=== PATIENT | female | born 1970 | race Caucasian/White ===

== ENCOUNTER 2016-08-06 11:55 | Emergency (ER) | payer OTHER ==
[~2016-08-06] VITALS: Ht 149.9 cm; Wt 58.0 kg
[2016-08-06 15:04] LABS: CALCIUM 8.9 mg/dL (8.5-10.1); CHLORIDE 105 mEq/L (98-107); INDEX HEMOLYSI 1 (1-3); INDEX ICTERIC 1 (1-4); INDEX LIPEMIC 1 (1-3)
[2016-08-06 15:08] LABS: HEMATOCRIT. 22.9 % (36.0-48.0); HEMOGLOBIN. 7.1 g/dL (12.0-16.0); MEAN CORPUSCULAR HEMOGLOBIN 20.7 pg (28.0-32.0); MEAN CORPUSCULAR HGB CONC 31.1 g/dL (31.0-37.0); MEAN CORPUSCULAR VOLUME 66.6 fL (81.0-99.0); MEAN PLATELET VOLUME 7.9 fl (7.4-10.4); PLATELET 543 x1000/uL (130-400); RED BLOOD CELL COUNT 3.45 mill/uL (4.2-5.4); RED CELL DISTRIBUTION WIDTH 20.8 % (11.6-14.6); WHITE BLOOD COUNT 15.4 x1000/uL (4.5-11.0)
[2016-08-06 15:09] LABS: DIFFERENTIAL COMMENT 1
[2016-08-06 15:10] LABS: ANION GAP 13; CARBON DIOXIDE 25 mEq/L (21-32); UREA NITROGEN BLOOD 16 mg/dL (7-21); eGFR > 60 mL/min (>60)
[2016-08-06 15:26] LABS: HCG SCREEN NEGATIVE
[2016-08-06 15:35] LABS: HYPOCHROMASIA 2+; PLATELET ESTIMATE INCREASED
[2016-08-06 15:37] LABS: ANISOCYTOSIS 1+
[2016-08-06 17:02] VITALS: BP 105/73
== END 2016-08-06 17:25 | disposition home or self-care (01) ==
LOC: ER 12:23
DX: N93.8 Other specified abnormal uterine and vaginal bleeding (principal); D25.9 Leiomyoma of uterus, unspecified; Z88.6 Allergy status to analgesic agent; I10 Essential (primary) hypertension; M19.90 Unspecified osteoarthritis, unspecified site; F17.200 Nicotine dependence, unspecified, uncomplicated; M54.5 Low back pain; G89.29 Other chronic pain
CPT/HCPCS: 36415; 76830; 76856; 80048; 84703; 85025; 99285; Z7610

== ENCOUNTER 2024-12-02 09:45 | Emergency (ER) | payer MEDICAID, MEDICARE, OTHER ==
[~2024-12-02] VITALS: Ht 149.9 cm; Wt 59.0 kg
[2024-12-02 09:46] VITALS: O2SAT 98
[2024-12-02 09:51] VITALS: BP 123/75; PULSE 91; RESP 18; TEMP 36.7; O2SAT 98
[2024-12-02 12:08] LABS: CLARITY URINE CLOUDY (CLEAR); COLOR URINE YELLOW (YELLOW); GLUCOSE URINE NEGATIVE (NEGATIVE); KETONES URINE NEGATIVE (NEGATIVE); LEUKOCYTE ESTERASE URINE 2+ (NEGATIVE); NITRITE URINE POSITIVE (NEGATIVE); OCCULT BLOOD URINE 1+ (NEGATIVE); PH URINE >=9.0 (4.5-8.0); PROTEIN URINE 2+ (NEGATIVE); SPECIFIC GRAVITY URINE 1.012 (1.005-1.030); UROBILINOGEN URINE 0.2 E.U./dL (0.2-1.0)
[2024-12-02 12:28] LABS: TRIPLE PHOSPHATE CRYSTAL URINE 2+ /lpf
[2024-12-02 12:29] LABS: SQUAMOUS EPITHELIAL CELL URINE 1+ /lpf (RARE/1+)
[2024-12-02 12:30] LABS: BACTERIA URINE 4+; WBC URINE 0-2 /hpf (0-2)
[2024-12-02] MEDS ORDERED: CEPH500T MT (12:35)
[2024-12-02] MEDS ORDERED: IBUP-2029 MT (12:35)
[2024-12-02] MEDS: CEFTRIAXONE SODIUM 1G VIAL IM ONE (12:54)
== END 2024-12-02 14:29 | disposition home or self-care (01) ==
LOC: ER 09:45
DX: N39.0 Urinary tract infection, site not specified (principal); I10 Essential (primary) hypertension; Z88.6 Allergy status to analgesic agent; Z98.890 Other specified postprocedural states
CPT/HCPCS: 81003; 96372; 99283; J0696; Z7610

== ENCOUNTER 2024-12-27 09:34 | Emergency (ER) | payer MEDICAID ==
[~2024-12-27] VITALS: Ht 149.9 cm; Wt 58.5 kg
[~2024-12-27 09:34] MED LIST: CEPH500T MT; IBUP-2029 MT
[2024-12-27 09:35] VITALS: O2SAT 98
[2024-12-27] MEDS: FLUORESCEIN SODIUM 1MG/STRIP RIGHTEYE ONE (09:50)
[2024-12-27] MEDS: IBUPROFEN 600MG TABLET PO ONE (09:58)
[2024-12-27] MEDS ORDERED: METH-653 MT (10:00)
[2024-12-27] MEDS ORDERED: OCUFLX RIGHTEYE (10:00)
[2024-12-27 10:11] VITALS: BP 137/90; PULSE 91; RESP 18; TEMP 37.1; O2SAT 100
== END 2024-12-27 10:13 | disposition home or self-care (01) ==
LOC: ER 09:34
DX: M54.6 Pain in thoracic spine (principal); H57.11 Ocular pain, right eye; I10 Essential (primary) hypertension; Q05.9 Spina bifida, unspecified; F10.90 Alcohol use, unspecified, uncomplicated; Z88.6 Allergy status to analgesic agent; Z79.899 Other long term (current) drug therapy; Y90.9 Presence of alcohol in blood, level not specified
CPT/HCPCS: 99283

== ENCOUNTER 2025-01-25 10:54 | Emergency (ER) | payer MEDICAID ==
[~2025-01-25] VITALS: Ht 152.4 cm; Wt 53.0 kg
[~2025-01-25 10:54] MED LIST changes: +IBUP-1455 MT; -IBUP-2029 MT; +METH-653 MT; +OCUFLX RIGHTEYE
[2025-01-25 11:34] VITALS: O2SAT 97
[2025-01-25] MEDS ORDERED: LIDO-53 TP (13:13)
[2025-01-25] MEDS: ACETAMINOPHEN 500MG TABLET PO ONE (13:45)
[2025-01-25] MEDS: LIDOCAINE 5% PATCH TOP SCH (13:45)
[2025-01-25 14:11] VITALS: BP 141/87; PULSE 99; RESP 18; TEMP 36.9; O2SAT 97
== END 2025-01-25 14:12 | disposition home or self-care (01) ==
LOC: ER 10:54
DX: M25.512 Pain in left shoulder (principal); I10 Essential (primary) hypertension; Z88.6 Allergy status to analgesic agent; M19.90 Unspecified osteoarthritis, unspecified site; Z98.890 Other specified postprocedural states; Z79.899 Other long term (current) drug therapy
CPT/HCPCS: 73030; 99283; A4565